=== PATIENT | male | born 1940 | race Caucasian/White ===

== ENCOUNTER 2016-12-01 11:23 | Inpatient (IN) | payer MEDICARE ==
[~2016-12-01 11:23] MED LIST: ACETAMINOPHEN325 MG PO; ASPIRIN81 MG PO; GLUCOPHAGE500 MG PO; JANUVIA50 MG PO; MILK OF MAGNESI30 ML PO; MYLANTA / MAALO30 ML PO; NAMENDA5 MG PO; NORVASC10 MG PO; PROPRANOLOL HCL20 MG PO; SENOKOT-S TABLE1 TAB PO; ZOLOFT25 MG PO; ZOLOFT50 MG PO
[2016-12-01] MEDS ORDERED: GLUCOPHAGE1000 MG PO (12:11)
[2016-12-01] MEDS ORDERED: ZOLOFT25 MG PO (12:12)
[2016-12-01] MEDS ORDERED: ATIVAN0.5 MG PO (12:13)
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
[2016-12-01 13:17] LABS: BASOPHILS 0.3 % (0-2); EOSINOPHILS 2.3 % (0-7); HEMATOCRIT 44.7 % (42.0-54.0); HEMOGLOBIN 14.8 g/dL (13.5-17.5); IMMATURE GRANULOCYTES 0.4 % (0-5); LYMPHOCYTES 33.4 % (15-50); MCH 30.3 pg (26.0-34.0); MCHC 33.1 g/dL (31.0-37.0); MCV 91.6 fL (80.0-100.0); MEAN PLATELET VOLUME 10.1 fL (7.4-10.4); MONOCYTES 9.9 % (2-11); NEUTROPHILS 53.7 % (40-80); PLATELET COUNT 140 10x3/uL (130-400); RBC 4.88 10x6/uL (4.20-6.10); RDW 13.9 % (11.5-14.5); WBC 7.9 10x3/uL (4.8-10.8)
[2016-12-01 13:18] VITALS: BP 133/77
[2016-12-01 13:29] LABS: HEMOGLOBIN A1C 6.8 % (4.8-6.0)
[2016-12-01 13:49] LABS: ALBUMIN 3.5 g/dL (3.4-5.0); ALKALINE PHOSPHATASE 113 U/L (46-116); ALT (SGPT) 34 U/L (10-68); CALC OSMOLALITY 279 mosm/kg (275-300); CALCIUM 8.9 mg/dL (8.5-10.1); CARBON DIOXIDE 23.6 mmol/L (21.0-32.0); CHLORIDE - SERUM 103 mmol/L (98-107); CHOL - HDL RATIO 5.6 ratio (2.3-4.9); CHOLESTEROL, TOTAL 179 mg/dL (0-200); CREATININE - SERUM 0.9 mg/dL (0.6-1.3); HDL CHOLESTEROL 32 mg/dL (32-96); LDL CHOLESTEROL 110 mg/dL (0-100); LDL-HDL RATIO 3.4 ratio (1.5-3.5); POTASSIUM - SERUM 4.2 mmol/L (3.5-5.1); PROTEIN - SERUM 7.7 g/dL (6.4-8.2); SODIUM 139 mmol/L (136-145); THYROID STIMULATING HORMONE 1.99 uIU/mL (0.36-3.74); TRIGLYCERIDE 185 mg/dL (30-200); UREA NITROGEN 15 mg/dL (7-18); eGFR NON AFRICAN AMERICAN 87 mL/min (90-120)
[2016-12-01 13:58] LABS: GLUCOSE 121 mg/dL (74-106)
[2016-12-01 14:00] LABS: APPEARANCE SLT CLOUDY (CLEAR); BILIRUBIN NEGATIVE (NEGATIVE); COLOR YELLOW (YELLOW); GLUCOSE NEGATIVE (NEGATIVE); KETONE NEGATIVE (NEGATIVE); LEUKOCYTE ESTERASE 2+ (NEGATIVE); NITRITE NEGATIVE (NEGATIVE); PROTEIN NEGATIVE (NEGATIVE); UROBILINOGEN NORMAL (NORMAL)
[2016-12-01 14:02] LABS: EPITHELIAL CELLS 0-5 /hpf (0-5); MUCUS >1+ /lpf (NONE SEEN); RED CELLS - URINE OCC /hpf (0-5); WHITE CELLS - URINE >50 /hpf (0-5)
[2016-12-01 14:03] LABS: BACTERIA FEW /hpf (NONE SEEN)
[2016-12-01 15:36] VITALS: BMI 35.3
[2016-12-01 18:25] VITALS: BP 133/77
[2016-12-01 19:37] VITALS: BP 109/77
[2016-12-01 21:29] VITALS: BP 109/77
--- NOTE | 2016-12-02 01:06 | NUR ---
B) Recieved patient in the hallway , calm and cooperative with care and assessment, I) No medications this shift, monitored for falls and safety, R) Cooperative and calm this shift, P) Continue plan of care.
[2016-12-02 07:25] LABS: RAPID PLASMA REAGIN Non Reactive (Non Reactive)
[2016-12-02 07:47] VITALS: BP 126/70
[2016-12-02 10:18] LABS: VITAMIN D 25 HYDROXY 16.2 ng/mL (30.0-100.0)
--- NOTE | 2016-12-02 12:00 | NUR ---
B) PATIENT CAN SIT UP AND STAND WITH MINIMAL ASSIST. HE DOES SPEAK MINIMALLY ONE WORD OR HE MAKES A MOAN SOUND. HIS RIGHT SIDE IS FLACCID, UNABLE TO MOVE HIS RIGHT ARM OR LEG UNLESS HE OR SOMEONE ELSE LIFTS LIMBS. I) PROVIDE PRESCRIBED MEDS. R) PATIENT IS COMPLIANT WITH MEDS AND UNIT MILIEU. HE LISTEN AND ANSWERS SOME QUESTIONS WITH A NOD OF HIS HEAD. HE HAS NOT SHOWN ANY AGGRESSION TODAY. P) CONTINUE POC.
[2016-12-02 16:26] VITALS: Wt 117.8 kg
[2016-12-02 19:00] VITALS: BP 106/58
[2016-12-02 21:13] VITALS: BP 106/58
--- NOTE | 2016-12-03 01:55 | NUR ---
B) Recieved patient in the day room, alert and oriented, nonverbal except for one word responces at times, calm and cooperative, I) Administed perscribed medication, monitored for falls, R) Medication compliant, cooperative with care, P) Continue plan of care.
[2016-12-03 09:07] VITALS: BP 114/66
--- NOTE | 2016-12-03 11:00 | NUR ---
B) THIS AM PATIENT SLID TO FLOOR AND KANWAL MCDOWELL CALLED FOR ASSIST TO PICK HIM UP. PATIENT IS CALM, HE HAS NOT SHOWN ANY IRRITABILITY OR AGGRESSION, HE CONTINUES TO USE ONE WORD TO COMMUNICATE. I) PROVIDE PRESCRIBED MEDS. R) PATIENT IS COMPLIANT WITH MEDS, PATIENT SELF PROPELS IN HIS W/C, HIS RIGHT SIDE IS FLACCID. P) CONTINUE POC.
[2016-12-03 12:15] LABS: FOLATE (FOLIC ACID) - SERUM QNS ng/mL (())
[2016-12-03 19:30] VITALS: BP 178/79
--- NOTE | 2016-12-04 01:01 | NUR ---
B) Recieved patient in the hallway, alert and oriented to self, responds to name, nonverbal, I) Administered perscribed medications, monitored for falls and safety, R) Medication comploiant, cooperative with care, P) Continue plan of care.
[2016-12-04 08:11] VITALS: BP 99/68
--- NOTE | 2016-12-04 14:55 | NUR ---
B) PATIENT IS AWAKE AND ALERT, HE IS ABLE TO MAKE NEEDS KNOWN, HE HAS NOT MADE ANY AGGRESSIVE GESTURES AND HAS NOT SHOWN ANY AGITATION, HE DOES TRY TO HELP STAFF TO STAND. PATIENT IS FLACCID OB HIS RIGHT SIDE AND CAN SELF PROPEL IN HIS W/C. I) PROVIDE PRESCRIBED MEDS. R) PATIENT IS COMPLAINT WITH MEDS. P) CONT POC.
[2016-12-04 19:30] VITALS: BP 105/64
--- NOTE | 2016-12-04 19:45 | NUR ---
RECEIVED IN HALLWAY. SITTING IN WHEELCHAIR. CALM NAD COOPERATIVE WITH CARE AND ASSESSMENTS. NO SIGNS OF AGGRESSION. REDIRECT AND REORIENT NEEDED. CONTINUES TO SIT QUIETLY IN WHEELCHAIR. CONTINUE PLAN OF CARE
[2016-12-05 07:00] VITALS: BP 109/59
--- NOTE | 2016-12-05 18:11 | NUR ---
B) PATIENT IS AWAKE AND ALERT AND HE IS ABLE TO SELF PROPEL IN HIS W/C, HIS RIGHT ARM AND RIGHT LEG ARE FLACCID. HE DOES HAVE EDEMA TO BILATERAL LOWER EXTREMITIES, BUT HE WILL NOT ELEVATE HIS LEGS. PATIENT DOES NOT SPEAK EXCEPT TO SAY "SH--" OR MAKE MOAN TYPE SOUNDS. PATIENT NEEDS STAFF TO ASSIST WITH TRANSFERS. I) PROVIDE PRESCRIBED MEDS. R) PATIENT IS COMPLIANT WITH MEDS AND UNIT MILIEU. P) CONTINUE POC.
[2016-12-05 19:30] VITALS: BP 118/73
--- NOTE | 2016-12-05 20:09 | NUR ---
RECEIVED IN HALLWAY. SITTING IN A WHEELCHAIR. CALM AND COOPERATIVE WITH CARE AND ASSESSMENTS. SMILES AT TIMES. ENCOURAGE TO EXPRESS NEEDS. NO SIGNS OF AGGRESSION. RESTING IN CHAIR IN HIS ROOM AT THIS TIME. CONTINUE PLAN OF CARE
[2016-12-06 07:00] VITALS: BP 112/69
--- NOTE | 2016-12-06 10:00 | NUR ---
AWAKE AND ALERT SITTING IN WHEELCHAIR. SELF PROPELS IN W/C. CALM AND COOPERATIVE WITH ASSESSMENT. VSS. ADMINISTER PRESCRIBED MEDS. COMPLIANT WITH TAKING MEDS. REDIRECT NEEDED. MONITOR FOR SAFETY AND FALLS. CONTINUE PLAN OF CARE.
[2016-12-06 19:45] VITALS: BP 98/65
--- NOTE | 2016-12-06 22:20 | NUR ---
RECEIVED IN HALLWAY. SITTING IN WHEELCHAIR. CALM AND COOPERATIVE WITH CARE AND ASSESSMENTS. ENCOURAGE TO EXPRESS NEEDS. RESTING IN BED WITH EYES CLOSED. CONTINUE PLAN OF CARE
[2016-12-07 08:00] VITALS: BP 105/72
--- NOTE | 2016-12-07 11:00 | NUR ---
AWAKE AND ALERT SITTING IN W/C. CALM AND COOPERATIVE WITH ASSESSMENT. VSS. ADMINISTERED PRESCRIBED MEDS. REDIRECT AND REORIENT NEEDED. COMPLIANT WITH TAKING MEDS. MONITOR FOR SAFETY AND FALLS. CONTINUE PLAN OF CARE.
[2016-12-07 19:30] VITALS: BP 112/79
--- NOTE | 2016-12-07 21:43 | NUR ---
RECIEVED IN HALLWAY. SITTING IN WHEELCHAIR AT NURSES STATION. CALM AND COOPERATIVE WITH CARE AND ASSESSMENT. ECOURAGE TO EXPRESS NEEDS. ASSIST TO TRANSFER TO BED. NO SIGNS OF AGGRESSION. RESTING EYES CLOSED IN BED AT THIS TIME. CONTINUE PLAN OF CARE.
[2016-12-08 07:44] VITALS: BP 138/84
--- NOTE | 2016-12-08 11:10 | NUR ---
B) PATIENT IS IN A BAD MOOD. STAFF ARE UNABLE TO FIND HIS SHOES, STAFF LOOKED ARTOUND AND DID FIND ONE, BUT ONE IS STILL MISSING. PATIENTS BILATERAL ARMS AND LEGS ARE EDEMATOUS. HIS RIGHT ARM AND LEG ARE FLACCID. PATIENT SELF PROPELS IN A W/C, HE SAYS A COUPLE WORDS D/T HIS HX OF STROKE. PATIENT IS ABLE TO STAND WITH STAFF ASSIST FOR TRANSFERS AND TOILETING. I) PROVIDE PRESCRIBED MEDS. R) PATIENT IS COMPLIANT WITH MEDS, BUT SHAKES HIS HEAD EVERYTIME HE LOOKS AT THEM. P) CONTINUE POC.
--- NOTE | 2016-12-08 15:34 | NUR ---
Nutrition Follow Up: Pt is eating 100% meal avg on a diabetic diet. +BM 12/07/16. Labs reviewed. Meds noted including Humulin, Januvia, Metformin. Rec continue current diet. RD following.
[2016-12-08 20:02] VITALS: BP 130/66
--- NOTE | 2016-12-09 00:40 | NUR ---
B) recieved patient in his bed in his room, alert and oriented to self, calm and cooperative with care and assessment, I) Administered perscribed medications whole with water, monitored for falls and safety, R) medication compliant, makes needs known nonverbally, P) Continue plan of care.
[2016-12-09 09:21] VITALS: BP 104/72
--- NOTE | 2016-12-09 10:33 | PN ---
PATIENT:SOBIA VAZQUEZ MEDICAL RECORD: [id number] LOCATION:[facility] ADMISSION DATE: 12/01/16 PROGRESS NOTE DATE OF SERVICE: 12/07/2016 SUBJECTIVE: No new complaint. OBJECTIVE: Staff reports the patient continues to be very impatient. He becomes angry and frustrated when staff cannot anticipate exactly what he wants even though he makes no effort to actually communicate what he wants. On exam, mood is irritable. Affect is brittle. Speech is very terse and limited to 1-syllable expressions. Content of thought does not appear to be positive for psychosis. Sensorium remains unchanged. ASSESSMENT: No change in diagnosis. PLAN: 1. Maintain current medication. 2. Continue supportive therapy. TRANSINT:[id number] Voice Confirmation ID: [id number] DOCUMENT ID: [id number] PATRICK REDMOND III, MD at 1033 CC: [id number] DICTATION DATE: 12/07/16 1134 UNDERCUTTER OPERATOR: 12/07/16 1950 ADM IN [facility] [address] [place] [address]
--- NOTE | 2016-12-09 10:33 | PN ---
PATIENT:SOBIA VAZQUEZ MEDICAL RECORD: [id number] LOCATION:[facility] ADMISSION DATE: 12/01/16 PROGRESS NOTE DATE OF SERVICE: 12/08/2016 SUBJECTIVE: No new complaint. OBJECTIVE: Patient continues to show irritability. Today, one of his shoes was lost and he became quite upset about this. He does require redirection from time to time. On exam, mood irritable. Affect remains brittle. Speech is quite terse. Content of thought is negative for overt psychosis. Sensorium is unchanged. ASSESSMENT: No change in diagnosis. PLAN: 1. Continue current medications, modify for behavioral outburst as indicated. 2. Continue supportive therapy. TRANSINT:[id number] Voice Confirmation ID: [id number] DOCUMENT ID: [id number] PATRICK REDMOND III, MD at 1033 CC: [id number] DICTATION DATE: 12/08/16 1145 WET TRIMMER: 12/08/16 1337 ADM IN [place] [id number] [place] [id number]
--- NOTE | 2016-12-09 13:54 | NUR ---
B) PATIENT IS AWAKE AND ALERT THIS AM, HE SELF PROPELS IN HIS W/C BY GOING BACKWARDS, HIS RIGHT ARM AND LEG ARE FLACCID AND EDEMATOUS. I) PROVIDE PRESCRIBED MEDS AND REDIRECT NEEDED. R) PATIENT IS COMPLIANT WITH MEDS AND USUALLY REDIRECTS EASILY. P) CONTINUE POC.
[2016-12-09 18:53] VITALS: BP 100/72
--- NOTE | 2016-12-10 01:33 | NUR ---
B) Recieved patient i his room alert and responds to name, calm and cooperative with care and assessment, I) Administered perscribed medications, monitored for behaviors, R) Medication compliant, resting quietly in bed now, P) Continue plan of care.
[2016-12-10 08:40] VITALS: BP 123/71
--- NOTE | 2016-12-10 10:15 | PN ---
PATIENT:SOBIA VAZQUEZ MEDICAL RECORD: [id number] LOCATION:[facility] ADMISSION DATE: 12/01/16 PROGRESS NOTE DATE OF SERVICE: 12/09/2016 SUBJECTIVE: No new complaint. OBJECTIVE: Staff report the patient is much calmer now that Seroquel 50 mg twice a day has been instituted. No further outbursts of agitation. On exam, mood is euthymic. Affect is rather constricted. Speech is minimal. Content of thought is negative for overt psychosis. Sensorium unchanged. ASSESSMENT: No change in diagnosis. PLAN: 1. Continue all current medications. 2. Continue supportive therapy. TRANSINT:[id number] Voice Confirmation ID: [id number] DOCUMENT ID: [id number] PATRICK REDMOND III, MD at 1015 CC: [id number] DICTATION DATE: 12/09/16 1121 SAWYER CORK SLABS: 12/09/162053 ADM IN [place] [id number] [place] [id number]
--- NOTE | 2016-12-10 11:20 | NUR ---
B) PATIENT IS AWAKE AND ALERT, HE IS MORE PLEASANT TODAY. PATIENT IS SMILING MORE, HE USUALLY MAKES A MOAN SOUND OR SAYS "SH--". PATIENT HAS A FLACCID RIGHT SIDE, HIS RIGHT EXTREMITIES ARE EDEMATOUS AND HE SELF PROPELS IN A W/C. I) PROVIDE PRESCRIBED MEDS, REDIRECT NEEDED. R) NO AGGRESSION NOTED TODAY. P) CONTINUE POC.
[2016-12-10 19:30] VITALS: BP 109/86
--- NOTE | 2016-12-11 03:55 | NUR ---
B) Patient is calm and cooperative this shift , alert and oriented to self, patient is non-verbal but able to make needs known I) Administered perscribed medications, monitored for falls and safety, R) Medication compliant, resting quietly now, P) Continue plan of care.
[2016-12-11 10:02] VITALS: BP 105/78
--- NOTE | 2016-12-11 14:13 | NUR ---
ALERT.RT.SIDE FLACCID WITH SOME EDEMA.COMPLIANT WITH MEDS AND STAFF.PROPELLS SELF IN WHEELCHAIR.NO AGGRESSION OBSERVED.WILL CONTINUE WITH PLAN OF CARE,MONITOR FOR CHANGES AND SAFETY.
[2016-12-11 19:30] VITALS: BP 122/84
--- NOTE | 2016-12-11 21:42 | NUR ---
B) PATIENT IS CALM AND PLEASANT HE DOES NOT SPEAK EXCEPT TO SAY "SH--" HE HAS NOT SHOWN ANY AGGRESSION TODAY. HIS RIGHT ARM AND LEG IS FLACCID. HE IS ORIENTED TO PERSON AND PLACE. HE NEEDED MINIMAL ASSIST TO GET IN BED. I) PROVIDE PRESCRIBED MEDS. R) PATIENT IS COMPLIANT WITH MEDS AND UNIT MILIEU. P) CONTINUE POC.
--- NOTE | 2016-12-11 23:28 | NUR ---
PATIENT HAD BEEN INCONTINENT OF URINE AND HE IS RED IN BETWEEN HIS LEGS, CLEANED AREA AND APPLIED NYSTATIN POWDER AND LEFT BRIEF OFF. WILL MONITOR EVERY TWO HOURS.
--- NOTE | 2016-12-12 06:07 | NUR ---
fsbs 127, no insulin required.
[2016-12-12 09:23] VITALS: BP 98/58
--- NOTE | 2016-12-12 17:47 | NUR ---
BECOMES AGGITATED THIS AM,PULLS FIST BACK AT THIS NURSE WHEN I ATTEMPT TO SCAN [place].HALDOL 2MG PO GIVEN.AT FIRST REFUSED TO TAKE PO MEDS BUT AGREES TO TAKE MEDS WITH BIAS CUTTER HERE.RT ARM FLACCID FROM OLD STROKE.RT LEG WEAK AND SWOLLEN.PROPELLS IN WHEELCHAIR.WILL CONTINUE WITH PLAN OF CARE,MONITOR FOR CHANGES AND SAFETY.HAD GOOD RESPONSE TO HALDOL.
[2016-12-12 19:30] VITALS: BP 99/71
--- NOTE | 2016-12-12 21:05 | NUR ---
B) Shakes his head 'yes' or 'no' in response to questions. Denies any pain or discomfort. Denies any concerns. Mute, did not try to verbalize this shift, reported he has expressive aphasia and did try to speak on previous shift. 2+ edema on both lower legs, right arm bruising and abrasions with scabs noted. Follows you with his eyes, mobile in wheelchair by pushing self. Needs assist to transfer due to right side weakness. Flat affect, no aggression displayed. I) Administer medications as ordered, redirect and reorient PRN. R) Opens eyes in response to his name, unable to assess if oriented to time, place and situation as patient was mute, did not try to speak. Behavior has been calm. Took his medication. P) Monitor per plan of care.
[2016-12-13 07:48] VITALS: BP 88/56
--- NOTE | 2016-12-13 09:48 | PN ---
PATIENT:SOBIA VAZQUEZ MEDICAL RECORD: [id number] LOCATION:[facility] ADMISSION DATE: 12/01/16 PROGRESS NOTE DATE OF SERVICE: 12/10/2016 SUBJECTIVE: No verbal complaint. OBJECTIVE: The patient again has shown some episodic aggressiveness. Case management is working on possible transfer to a different long term. On exam, mood irritable. Affect is brittle. Speech is minimal. Content of thought appears to focus on somatic concerns. Sensorium shows no change. ASSESSMENT: No change in diagnosis. PLAN: 1. Advance Seroquel to 75 mg b.i.d. 2. Continue other medications and supportive therapy. TRANSINT:[id number] Voice Confirmation ID: [id number] DOCUMENT ID: [id number] PATRICK REDMOND III, MD at 0948 CC: [id number] DICTATION DATE: 12/10/16 1230 WELLNESS PROGRAM COORDINATOR: 12/10/16 2120 ADM IN [place] [id number] [place] [address]
[2016-12-13] MEDS ORDERED: DIFLUCAN100 MG PO (10:47)
[2016-12-13] MEDS ORDERED: ASPIRIN81 MG PO (10:47)
[2016-12-13] MEDS ORDERED: LIPITOR10 MG PO (10:47)
[2016-12-13] MEDS ORDERED: SEROQUEL25 MG PO (10:48)
[2016-12-13] MEDS ORDERED: PEPCID20 MG PO (10:48)
[2016-12-13] MEDS ORDERED: VITAMIN D5000 UNIT PO (10:49)
[2016-12-13] MEDS ORDERED: SENOKOT-S TABLE1 TAB PO (10:49)
--- NOTE | 2016-12-13 13:50 | NUR ---
PT IS RESTLESS BUT EASILY REDIRECTED. PT DOES GET FRUSTRATED AT TIMES WHEN TRYING TO EXPRESS NEEDS TO STAFF. HE IS NON-VERBAL. HE DOES UNDERSTAND AND SHAKES HIS HEAD YES AND NO. HE REFUSES TO USE COMMUNICATION BOARD OR TO WRITE DOWN HIS NEEDS. FALL PRECAUTIONS MAINTAINED. NO AGGRESSION NOTED. MEDICATIONS GIVEN ORDERED. WILL CONTINUE TO MONITOR AND CONTINUE WITH PLAN OF CARE.
[2016-12-13 19:29] VITALS: BP 118/50
--- NOTE | 2016-12-14 02:46 | NUR ---
B) patient alert and oriented to self, preferrs quiet area away from other patients, non-verbal but able to make most needs known, I) Administered perscribed medications, assisted with ADLs R) Medication compliant, cooperative with care, P) Continue plan of care.
--- NOTE | 2016-12-14 07:35 | NUR ---
ALL BELONGINGS PACKED AND READY TO BE SENT WITH PT UPON DISCHARGE. VSS. NO AGGRESSION NOTED. PT CONTINUES TO REFUSE ADDITIONAL COMMUNICATION TECHNIQUES BUT HE IS ABLE TO EXPRESS NEEDS. FALL PRECAUTIONS MAINTAINED. WILL CONTINUE TO MONITOR AND CONTINUE WITH PLAN OF CARE.
[2016-12-14 10:18] VITALS: BP 84/62
--- NOTE | 2016-12-14 10:54 | PN ---
PATIENT:SOBIA VAZQUEZ MEDICAL RECORD: [id number] LOCATION:[facility] ADMISSION DATE: 12/01/16 PROGRESS NOTE DATE OF SERVICE: 12/13/2016 SUBJECTIVE: No new complaint. OBJECTIVE: The patient did become frustrated and agitated once over the weekend when staff could not understand what he was requesting. Aside from that, he has been cooperative. On exam, mood is somewhat irritable. Affect is brittle. Speech is terse. Content of thought unchanged. Sensorium unchanged. ASSESSMENT: No change in diagnosis. PLAN: 1. Continue current medications and supportive therapy. 2. Discharge within the next day or so. TRANSINT:[id number] Voice Confirmation ID: [id number] DOCUMENT ID: [id number] PATRICK REDMOND III, MD at 1054 CC: [id number] DICTATION DATE: 12/13/16 1043 CRUISE DIRECTOR: 12/13/161933 DIS IN 12/14/16 [facility] [address] [place] [address]
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
== END 2016-12-14 10:22 | DRG 57 ==
LOC: D.PSYCH 11:23
PROVIDERS: ADMIT Psychiatry & Neurology Psychiatry
DX: I69.919 Unspecified symptoms and signs involving cognitive functions following unspecified cerebrovascular disease (principal); F01.51 Vascular dementia, unspecified severity, with behavioral disturbance; I69.951 Hemiplegia and hemiparesis following unspecified cerebrovascular disease affecting right dominant side; I69.920 Aphasia following unspecified cerebrovascular disease; L30.8 Other specified dermatitis; K59.00 Constipation, unspecified; E11.9 Type 2 diabetes mellitus without complications; I10 Essential (primary) hypertension; E66.9 Obesity, unspecified; B37.2 Candidiasis of skin and nail; Z74.09 Other reduced mobility; F41.9 Anxiety disorder, unspecified; E55.9 Vitamin D deficiency, unspecified; Z86.718 Personal history of other venous thrombosis and embolism; Z87.891 Personal history of nicotine dependence